=== PATIENT | female | born 1935 | race Caucasian/White ===

== ENCOUNTER 2018-06-30 13:52 | Observation (INO) | payer MEDICARE, OTHER, SELFPAY ==
[2018-06-30] VITALS (13 sets, daily range): BP systolic 117–205; BP diastolic 75–97; PULSE 63–79; RESP 12–19; TEMP 36.4–36.7; O2SAT 95–100; BMI 24.0
--- NOTE | 2018-06-30 14:17 | DI.RAD.S_ITS ---
PROCEDURE: XR CHEST 1V INDICATIONS: chest pain TECHNIQUE: One view of the chest was acquired. COMPARISON: None. FINDINGS: Surgical changes and devices: None. Lungs and pleura: No pleural effusions or pneumothorax. Lungs are clear. Mediastinum: Mediastinal contours appear normal. Heart size is normal. Bones and chest wall: No suspicious bony lesions. Overlying soft tissues appear unremarkable. IMPRESSION: No acute cardiopulmonary pathology. Dictated by: Eduardo Mcfadden M.D. on 06/30/2018 at 14:29 Approved by: Eduardo Mcfadden M.D. on 06/30/2018 at 14:30
[2018-06-30 14:22] LABS: Add Manual Diff / Slide Review NO; Basophils Percent Auto 0.6 % (0-2); Eosinophils Percent Auto 1.5 % (2-4); Hematocrit 44.3 % (36-46); Hemoglobin 15.5 g/dL (12.0-16.0); Lymphocytes Percent Auto 35.1 % (25-40); Mean Corpuscular HGB Conc 34.9 % (30-36); Mean Corpuscular Hemoglobin 31.7 PG (26-34); Mean Corpuscular Volume 90.9 fL (80-100); Monocytes Percent Auto 6.9 % (3-14); Neutrophils Absolute Auto 3300 /uL (3000-5900); Neutrophils Percent Auto 55.9 % (50-75); Platelet Count 167 X10^3/uL (150-400); Red Blood Cell Count 4.87 X10^6/uL (4.0-5.2); Red Cell Distribution Width 13.2 % (11.6-14.8); White Blood Cell Count 5.8 X10^3/uL (4.5-11.0)
[2018-06-30] MEDS: NITROGLYCERIN 0.4 MG SL TAB SL ×2 (14:23→14:46)
[2018-06-30] MEDS: ASPIRIN 81 MG TAB 324 MG PO (14:23)
[2018-06-30 14:29] LABS: Prothrombin Time 10.6 SECONDS (10.1-12.7)
[2018-06-30 14:31] LABS: Chloride 105 mmol/L (98-107); HEMOLYSIS < 15 (0-50)
[2018-06-30 14:32] LABS: PTT Partial Thromboplastin Tim 28 SECONDS (26.4-36.2)
[2018-06-30 14:34] LABS: Alanine Aminotransferase 32 IU/L (9-52); Albumin 4.2 g/dL (3.5-5.0); Albumin Globulin Ratio 1.2 (1.0-2.8); Alkaline Phosphatase 63 U/L (38-126); Aspartate Aminotransferase 33 IU/L (14-36); BUN Creatinine Ratio 22.9 (6-22); Bilirubin Total 0.6 mg/dL (0.2-1.3); Blood Urea Nitrogen 16 mg/dL (7-17); Carbon Dioxide 27 mmol/L (22-32); Creatine Kinase 75 U/L (30-135); Estimated Glomerular Filt Rate > 60.0 mL/min (>60); Globulin 3.4 g/dL (1.7-4.1); Glucose 94 mg/dL (80-110); Lipase 190 U/L (23-300); Potassium 3.9 mmol/L (3.4-5.1); Sodium 141 mmol/L (137-145); Total Protein 7.6 g/dL (6.3-8.2)
--- NOTE | 2018-06-30 14:36 | PC.NURSE ---
After 1st NTG, BP decreased significantly (120's systolic). Pain in chest is better, pain in left neck 6/10, slightly improved.
--- NOTE | 2018-06-30 14:55 | PC.NURSE ---
After 2nd ntg, chest pressure has returned and neck pain is unchanged.
[2018-06-30 15:01] LABS: Troponin I < 0.012 ng/mL (0.01-0.034)
--- NOTE | 2018-06-30 15:06 | DI.CT.S_ITS ---
PROCEDURE: CT ANGIO CHEST ABDOMEN INDICATIONS: Pain, clinical concern for dissection TECHNIQUE: Precontrast 5 mm thick sections acquired from the lung apices to the iliac crests. After the administration of intravenous contrast, 2.5 mm thick sections again acquired from the lung apices to the iliac crests. 10 mm maximum intensity projection (MIP) oblique sagittal and coronal reformats were then acquired. For radiation dose reduction, the following was used: automated exposure control. COMPARISON: [facility], CR, XR CHEST 1V, 06/30/2018, 14:21. FINDINGS: Image quality: Excellent. AORTA: No findings of dissection are aneurysm are seen. Atherosclerotic irregularity and calcification can be seen throughout. Focal ectasia is seen of the mid abdominal aorta, which measures up to 2.5 cm AP. There is 40-50% stenosis seen involving the celiac axis. The origin of the SMA is widely patent. The visualized GROVER is unremarkable. Accessory renal arteries are seen on both sides, with 2 accessory renal arteries seen on the right side. CHEST: Lungs and pleura: No acute airspace opacities. No pleural effusions or pneumothorax. Central and peripheral airways are patent and normal in caliber. Mediastinum: Heart size is normal. No pericardial effusion. No mediastinal or hilar adenopathy by size criteria. Central pulmonary arteries are normal in size. Esophagus is normal in caliber. No hiatal hernias. Bones and chest wall: Rim calcified mammoplasty implants are seen No axillary adenopathy by size criteria. Thyroid gland demonstrates no significant CT abnormality. No suspicious bony lesions. No vertebral body compression fractures. ABDOMEN: Vasculature: Celiac trunk and mesenteric arteries are patent. Renal arteries are also patent. Solid organs: Liver is normal in size and enhancement. Gallbladder wall is not thickened. Biliary system is non dilated. Pancreas enhances normally. Spleen is normal in size and enhancement. No adrenal nodules. Both kidneys are normal in size and enhancement, without hydronephrosis. Peritoneum and bowel: No free fluid or air. Bowel loops are normal in caliber and wall thickness. Nodes and vessels: No retroperitoneal or mesenteric adenopathy by size criteria. Inferior vena cava is normal in morphology. Bones: No suspicious bony lesions. A vertebral body hemangioma can be seen at T7. S-shaped scoliotic curvature is seen. No vertebral body compression fractures. Miscellaneous: No ventral hernias. IMPRESSION: Negative for aortic dissection or aneurysm. 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 Incidental note is made of: Rim calcified mammoplasty implants Atherosclerotic irregularity and calcification Abdominal aortic ectasia, without aneurysm T7 vertebral body hemangioma. Bilateral accessory renal arteries S-shaped scoliotic curvature Dictated by: Presley Ferro M.D. on 06/30/2018 at 14:36 Approved by: Presley Ferro M.D. on 06/30/2018 at 14:43
--- NOTE | 2018-06-30 16:27 | PC.NURSE ---
+ changes on 2nd EKG as compared to 1st. Will repeat in one hour.
[2018-06-30] MEDS: LORazepam 0.5 MG TABLET 1 MG PO (16:30)
[2018-06-30 17:13] LABS: Troponin I < 0.012 ng/mL (0.01-0.034)
--- NOTE | 2018-06-30 18:27 | ED_ITS ---
HPI - Chest Pain General Chief Complaint: Chest Pain Stated Complaint: CHEST PAIN History of Present Illness HPI narrative: HPI 83-year-old female with history of Takotsubo cardiomyopathy presents for evaluation of non-radiating, sharp left subscapular of ~4 hours duration as well as 2-3 hours of mild substernal cramping / squeezing type chest pain. Unable to identify any provoking or relieving factors. Patient denies recent immobilization, leg trauma, estrogen use, surgery in the last four weeks, hemoptysis, or malignancy in the last 6 months. M/S/F/SocHx notable for: please see HPI; remainder reviewed with patient and in chart. ROS: Negative constitutional, eye, cardiovascular, pulmonary, GI, , MSK, skin , neurologic, psychiatric, endocrine unless noted in the HPI. Exam Gen: Pleasant, non-toxic appearing, resting comfortably. HEENT: NC, AT, PEERL, EOMI. Resp: Clear to auscultation bilaterally, normal work of breathing. Card: RRR with no M/R/G, no crackles in lung bases, no pedal edema, no JVD appreciated. GI: nontender to palpation throughout all quadrants, no rebound, no guarding. MSK: No chest wall TTP. No visible deformities, strength and tone WNL. Skin: Normal color with no visible lesions. Neuro: AO x 3, no facial asymmetry, vision and hearing WNL. Psych: Mood and affect appropriate. Labs / Imaging (pertinent): WBC 5.8, Hb 15.5, Na 141, K 3.9, total bilirubin 0.6, AST 33, ALT 32, alkaline phosphatase 63, lipase 190. Troponin (2:10 PM) <0.012 , troponin (4:27 PM) <0.012 EKG (1:59 PM): SR at 74 bpm, CT 189 ms, no CT segment depressions, no new ST segment changes, new LBBB, upgrade T-wave in lead V1, no further abnormalities to suggest acute ischemia. No prior ECGs for comparison. EKG (4:14 PM) SR 63 bpm, CT 220 ms, no ST segment elevations or depressions, increase T-wave amplitude in lead V1, V2, 3. EKG (5:57): SR 65 bpm, no significant change from 4:14pm EKG. CXR: No acute cardiopulmonary disease process. CTA Chest / Abd: Negative for aortic dissection or aneurysm. 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 Incidental note is made of: Rim calcified mammoplasty implants, Atherosclerotic irregularity and calcification, Abdominal aortic ectasia, without aneurysm, T7 vertebral body hemangioma, Bilateral accessory renal arteries, S-shaped scoliotic curvature. MDM Previous chart, nursing note, and vitals reviewed. A: 83-year-old female with history of Takotsubo cardiomyopathy presents for evaluation of non-radiating, sharp left subscapular of ~4 hours duration as well as 2-3 hours of mild substernal cramping / squeezing type chest pain. DDx and Evaluation: * ACS - doubt ACS given a non-ischemic EKG and negative serial troponins. * UA - concern for unstable angina given the ongoing change in dynamic EKG changes, HEART score 5 (Hx - 1, EKG - 1, age - 2, risk factors - 1, troponin - 0 ; 30 day MACE: 12-16.6%). * Pericarditis - consider pericarditis unlikely given the lack of CT segment depressions as well as the absence of diffuse ST-segment elevations, lack of reduction of pain when supine, and lack of a friction rub. * Myocarditis - unlikely given the negative troponin and an EKG without characteristic CT-segment or ST-segment changes. * Dissection - no evidence by imaging. * PE - low clinical suspicion given history and alternate diagnosis, further risk stratification (e.g.) Well's not indicated. * Mediastinal Air - no evidence by CXR or auscultation. * Pneumothorax - no evidence by CXR or physical exam. * MSK - doubt given lack of reproducibility on exam. * Endocarditis - no identifiable risk factors, patient afebrile, no new murmurs appreciated on exam; doubt. * GI (Esophageal rupture, GERD) - esophageal rupture effectively excluded given the lack of mediastinal widening, non-toxic appearance, and lack of identifiable risk factors. While not definitively excluded, further evaluation of GERD is deferred to an outpatient setting. ED Course: Patient given ASA, minimal change with nitroglycerin, diludid given for pain. Vital signs remained stable and within clinically acceptable limits. Disposition: admitted further evaluation as appropriate. Impression: Chest Pain. Related Data Home Medications Medication Instructions Recorded Confirmed Calcium 1 tab PO DAILY 06/30/18 06/30/18 Vitamin B 1 tab PO DAILY 06/30/18 06/30/18 lisinopril 5 mg PO DAILY 06/30/18 06/30/18 multivitamin 1 tab PO DAILY 06/30/18 06/30/18 temazepam [Restoril] 30 mg PO BEDTIME 06/30/18 06/30/18 vit C-vit B-cjhqax-chh-om-3 1 cap PO DAILY 06/30/18 06/30/18 [Ocuvite] Allergies Allergy/AdvReac Type Severity Reaction Status Date / Time No Known Drug Allergies Allergy Verified 06/30/18 14:22 [facility] Social History Smoking Status: Former smoker Exam Initial Vital Signs Initial Vital Signs: Vital Signs Temperature 98.0 F 06/30/18 14:00 Pulse Rate 79 06/30/18 14:00 Respiratory Rate 19 06/30/18 14:00 Blood Pressure 205/97 H 06/30/18 14:00 Pulse Oximetry 99 06/30/18 14:00 Course Orders Ordered: ED Orders 06/30/18 14:09 EKG-12 Lead Stat 06/30/18 14:10 Complete Blood Count AUTO DIFF Stat Comprehensive Metabolic Panel Stat Lipase Stat Partial Thromboplastin Time Stat Prothrombin Time INR Stat Troponin & CK Cardiac Panel Stat 06/30/18 14:17 XR chest 1V Stat 06/30/18 15:06 CT angio chest abdomen Stat 06/30/18 16:13 EKG-12 Lead Stat 06/30/18 16:14 EKG-12 Lead Stat 06/30/18 16:27 Troponin I Stat 06/30/18 17:02 EKG-12 Lead Stat Nitroglycerin (Nitrostat) 0.4 mg SL [id number] PRN PRN Reason: Chest Pain Last Admin: 06/30/18 14:46 Dose: 0.4 mg Admin: 06/30/18 14:23 Dose: 0.4 mg Discontinued Medications Aspirin (Aspirin Chew) 324 mg PO NOW ONE Stop: 06/30/18 14:18 Last Admin: 06/30/18 14:23 Dose: 324 mg Lorazepam (Ativan) 1 mg PO NOW ONE Stop: 06/30/18 16:28 Last Admin: 06/30/18 16:30 Dose: 1 mg Vital Signs - 8 hr 06/30/18 14:00 06/30/18 14:23 06/30/18 14:35 Temperature 98.0 F Pulse Rate 79 65 65 Respiratory Rate 19 14 Blood Pressure 205/97 H 186/88 H Blood Pressure [Right Arm] 129/87 H Pulse Oximetry 99 100 06/30/18 14:36 06/30/18 14:46 06/30/18 14:54 Temperature Pulse Rate 65 Respiratory Rate Blood Pressure 129/87 H 143/87 H 139/92 H Blood Pressure [Right Arm] Pulse Oximetry 06/30/18 14:55 06/30/18 15:30 06/30/18 16:16 Temperature Pulse Rate 65 65 63 Respiratory Rate 14 12 12 Blood Pressure Blood Pressure [Right Arm] 139/92 H 135/85 H 145/78 H Pulse Oximetry 95 97 06/30/18 17:18 06/30/18 18:02 Temperature Pulse Rate 64 66 Respiratory Rate 15 14 Blood Pressure Blood Pressure [Right Arm] 117/82 H 139/79 H Pulse Oximetry 95 98 MDM - Chest Pain Lab Data Result diagrams: 06/30/18 14:10 06/30/18 14:10 Lab Results 06/30/18 06/30/18 06/30/18 Range/Units 14:10 14:10 14:10 WBC 5.8 (4.5-11.0) X10^3/uL RBC 4.87 (4.0-5.2) X10^6/uL Hgb 15.5 (12.0-16.0) g/dL Hct 44.3 (36-46) % MCV 90.9 (80-100) fL MCH 31.7 (26-34) PG MCHC 34.9 (30-36) % RDW 13.2 (11.6-14.8) % Plt Count 167 (150-400) X10^3/uL Neut % (Auto) 55.9 (50-75) % Lymph % (Auto) 35.1 (25-40) % [place] % (Auto) 6.9 (3-14) % Eos % (Auto) 1.5 L (2-4) % Baso % (Auto) 0.6 (0-2) % Neut # (Auto) 3300 (9292-1677) /uL PT 10.6 (10.1-12.7) SECONDS INR 1.0 (0.9-1.3) APTT 28 (26.4-36.2) SECONDS Sodium 141 (137-145) mmol/L Potassium 3.9 (3.4-5.1) mmol/L Chloride 105 (98-107) mmol/L Carbon Dioxide 27 (22-32) mmol/L BUN 16 (7-17) mg/dL Creatinine 0.70 (0.52-1.04) mg/dL Estimated GFR > 60.0 (>60) mL/min BUN/Creatinine Ratio 22.9 H (6-22) Glucose 94 (80-110) mg/dL Calcium 10.0 (8.4-10.2) mg/dL Total Bilirubin 0.6 (0.2-1.3) mg/dL AST 33 (14-36) IU/L ALT 32 (9-52) IU/L Alkaline Phosphatase 63 (38-126) U/L Total Creatine Kinase 75 (30-135) U/L CK-MB (CK-2) TNP Troponin I < 0.012 (0.01-0.034) ng/mL Total Protein 7.6 (6.3-8.2) g/dL Albumin 4.2 (3.5-5.0) g/dL Globulin 3.4 (1.7-4.1) g/dL Albumin/Globulin Ratio 1.2 (1.0-2.8) Lipase 190 (23-300) U/L 06/30/18 Range/Units 16:27 WBC (4.5-11.0) X10^3/uL RBC (4.0-5.2) X10^6/uL Hgb (12.0-16.0) g/dL Hct (36-46) % MCV (80-100) fL MCH (26-34) PG MCHC (30-36) % RDW (11.6-14.8) % Plt Count (150-400) X10^3/uL Neut % (Auto) (50-75) % Lymph % (Auto) (25-40) % [place] % (Auto) (3-14) % Eos % (Auto) (2-4) % Baso % (Auto) (0-2) % Neut # (Auto) (9904-3349) /uL PT (10.1-12.7) SECONDS INR (0.9-1.3) APTT (26.4-36.2) SECONDS Sodium (137-145) mmol/L Potassium (3.4-5.1) mmol/L Chloride (98-107) mmol/L Carbon Dioxide (22-32) mmol/L BUN (7-17) mg/dL Creatinine (0.52-1.04) mg/dL Estimated GFR (>60) mL/min BUN/Creatinine Ratio (6-22) Glucose (80-110) mg/dL Calcium (8.4-10.2) mg/dL Total Bilirubin (0.2-1.3) mg/dL AST (14-36) IU/L ALT (9-52) IU/L Alkaline Phosphatase (38-126) U/L Total Creatine Kinase (30-135) U/L CK-MB (CK-2) Troponin I < 0.012 (0.01-0.034) ng/mL Total Protein (6.3-8.2) g/dL Albumin (3.5-5.0) g/dL Globulin (1.7-4.1) g/dL Albumin/Globulin Ratio (1.0-2.8) Lipase (23-300) U/L Discharge Plan Departure Prescriptions: No Action multivitamin Tablet 1 tab PO DAILY RF: 0 temazepam [Restoril] 30 mg Capsule 30 mg PO BEDTIME RF: 0 lisinopril 5 mg Tablet 5 mg PO DAILY RF: 0 vit C-vit L-pfjezu-lvo-om-3 [Ocuvite] [id number] kq-ydod-xq-mg Capsule 1 cap PO DAILY RF: 0 Calcium 1 tab PO DAILY RF: 0 Vitamin B 1 tab PO DAILY RF: 0
--- NOTE | 2018-06-30 19:18 | PM.HP.1 ---
History of Present Illness Date Patient Seen: 06/30/18 Time Patient Seen: 17:50 Chief complaint: CHEST PAIN Narrative: Patient is an 83 years of age female that notes onset of chest discomfort at rest. This came on earlier today. He noted as a chest heaviness. Earlier today in the morning she felt dysphoric. Two days ago she notes she has had a bad episode of vertigo. 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 Patient is visiting locally a boyfriend. She last visited him from [place] to this region in March of 2018. Patient is concerned that she may have had somewhat of an anxiety episode. She denies any history of heartburn or reflux disease. No known history of coronary artery disease nor congestive heart failure. Patient notes that she swims in a pool perhaps 4-5 days a week. She has no notable change in her activity over the past several weeks. Her exercise tolerance remains unchanged according to the patient. She stopped smoking in 1979. She has she has no early heart disease in 1st degree relatives. Patient History Medical History Anxiety (Acute) Hypertension (Acute) Takotsubo cardiomyopathy (Acute) Vertigo (Acute) Family & Social History Safety & Behavioral: Feels Safe in Current Yes Environment Tobacco & Substance use: Smoking Status Former smoker alcohol intake frequency holiday/special occasion Substance Use Type does not use Meds Home Medications Medication Instructions Recorded Confirmed Type Calcium 1 tab PO DAILY 06/30/18 06/30/18 History Vitamin B 1 tab PO DAILY 06/30/18 06/30/18 History lisinopril 5 mg PO DAILY 06/30/18 06/30/18 History multivitamin 1 tab PO DAILY 06/30/18 06/30/18 History temazepam [Restoril] 30 mg PO BEDTIME 06/30/18 06/30/18 History vit C-vit V-qyxkxf-btx-om-3 1 cap PO DAILY 06/30/18 06/30/18 History [Ocuvite] Allergies Allergy/AdvReac Type Severity Reaction Status Date / Time No Known Drug Allergies Allergy Verified 06/30/18 14:22 Review of Systems Review of Systems A 10 point review of system was negative except for the symptoms as described. The chest pain more so a chest heaviness. Feeling a bit of dysphoria this morning. Feeling a bit anxious. No history of gastroesophageal reflux disease. Exam Vital Signs (past 8 hours): - 06/30/18 14:00 06/30/18 14:23 06/30/18 14:35 Temperature 98.0 F Pulse Rate 79 65 65 Respiratory Rate 19 14 Blood Pressure 205/97 H 186/88 H Blood Pressure [Right Arm] 129/87 H Pulse Oximetry 99 100 06/30/18 14:36 06/30/18 14:46 06/30/18 14:54 Temperature Pulse Rate 65 Respiratory Rate Blood Pressure 129/87 H 143/87 H 139/92 H Blood Pressure [Right Arm] Pulse Oximetry 06/30/18 14:55 06/30/18 15:30 06/30/18 16:16 Temperature Pulse Rate 65 65 63 Respiratory Rate 14 12 12 Blood Pressure Blood Pressure [Right Arm] 139/92 H 135/85 H 145/78 H Pulse Oximetry 95 97 06/30/18 17:18 06/30/18 18:02 06/30/18 18:35 Temperature Pulse Rate 64 66 64 Respiratory Rate 15 14 12 Blood Pressure 152/78 H Blood Pressure [Right Arm] 117/82 H 139/79 H Pulse Oximetry 95 98 100 Oxygen Delivery Method Room Air Narrative Exam Narrative: Physical exam general appearance patient is a 83 years of age female who is young for her age in appearance. Psychiatric Well oriented mood is pleasant cooperative patient in good spirits Skin Normal turgor for age note nonjaundiced no suspicious dermatitis rash lesions noted Eyes Pupils are equal round and reactive to light Ears nose throat hearing is grossly intact, dentition is fair and appropriate for age, nose septum to midline with no bleeding noted Respiratory Clear to auscultation with good airflow no wheezes no crackles Cardiovascular Regular in rate and rhythm no murmur rubs or gallops Gastrointestinal Soft nontender positive bowel sounds no pedal splenomegaly no bruits are noted Lymph nodes no lymphadenopathy to neck or axilla Musculoskeletal Motor strength 5/5 no clubbing is noted range of motion is normal neurologic No focal neurologic changes cranial nerves 2-12 were grossly intact normal proprioception noted Musculoskeletal Objective Labs Result Diagrams: 06/30/18 14:10 06/30/18 14:10 Labs: Laboratory Results - last 24 hr 06/30/18 06/30/18 06/30/18 14:10 14:10 14:10 WBC 5.8 RBC 4.87 Hgb 15.5 Hct 44.3 MCV 90.9 MCH 31.7 MCHC 34.9 RDW 13.2 Plt Count 167 Neut % (Auto) 55.9 Lymph % (Auto) 35.1 [place] % (Auto) 6.9 Eos % (Auto) 1.5 L Baso % (Auto) 0.6 Neut # (Auto) 3300 PT 10.6 INR 1.0 APTT 28 Sodium 141 Potassium 3.9 Chloride 105 Carbon Dioxide 27 BUN 16 Creatinine 0.70 Estimated GFR > 60.0 BUN/Creatinine Ratio 22.9 H Glucose 94 Calcium 10.0 Total Bilirubin 0.6 AST 33 ALT 32 Alkaline Phosphatase 63 Total Creatine Kinase 75 CK-MB (CK-2) TNP Troponin I < 0.012 Total Protein 7.6 Albumin 4.2 Globulin 3.4 Albumin/Globulin Ratio 1.2 Lipase 190 06/30/18 16:27 WBC RBC Hgb Hct MCV MCH MCHC RDW Plt Count Neut % (Auto) Lymph % (Auto) [place] % (Auto) Eos % (Auto) Baso % (Auto) Neut # (Auto) PT INR APTT Sodium Potassium Chloride Carbon Dioxide BUN Creatinine Estimated GFR BUN/Creatinine Ratio Glucose Calcium Total Bilirubin AST ALT Alkaline Phosphatase Total Creatine Kinase CK-MB (CK-2) Troponin I < 0.012 Total Protein Albumin Globulin Albumin/Globulin Ratio Lipase Assessment & Plan Plan: Assessment/Plan Narrative: 1. Atypical chest pain Patient admitted to observation with telemetry provided. Cardiac enzymes to be done serially. Aspirin daily. Nitroglycerin as needed. Will consider treadmill test [place] that requires a very ride to get back to the hospital. Patient does not return to [place] until next week. 2. Mild anxiety Will provide Ativan 0.5 mg p.o. q.3 hours as needed. Restoril to be provided this evening as sleep aid 3. History of hypertension We will provide her home cardiac med as tolerated. Time Spent With Patient Time with patient: Greater than 35 minutes (50 minutes)
--- NOTE | 2018-06-30 20:40 | PC.NURSE ---
admission pt to ac from ER after experiencing left shoulder and neck pain/pressure that radiated to chest [place]. pt states improvement post treatment in ER. Tele monitor on. Cardiac enzymes - so far. in to see/assess pt upon arrival. Pt oriented to room and plan of care. call light encouraged for needs and prior to activity if wanting any assist.
[2018-06-30] MEDS: SODIUM CHLORIDE 0.9% 1,000 ML 65 ML IV (20:47)
[2018-06-30 21:43] LABS: Creatine Kinase 63 U/L (30-135)
[2018-06-30] MEDS: TEMAZEPAM 15 MG CAPSULE PO ×2 (21:49→22:56)
[2018-06-30 21:56] LABS: Troponin I < 0.012 ng/mL (0.01-0.034)
[2018-07-01 00:44] VITALS: BP 141/70; PULSE 62; RESP 18; TEMP 36.2; O2SAT 98
[2018-07-01 00:46] VITALS: BP 120/61; PULSE 66; RESP 16; TEMP 36.4; O2SAT 96
[2018-07-01 05:08] VITALS: BP 120/76; PULSE 60; RESP 18; TEMP 36.6; O2SAT 94
[2018-07-01 05:33] LABS: Creatine Kinase 51 U/L (30-135)
[2018-07-01 05:47] LABS: Troponin I < 0.012 ng/mL (0.01-0.034)
[2018-07-01 07:50] VITALS: BP 141/95; PULSE 69; RESP 16; TEMP 36.3; O2SAT 99
--- NOTE | 2018-07-01 09:13 | DI.NM.S_ITS ---
PROCEDURE: NM ZAHEER PERF SPECT REST & STR Rest and exercise myocardial perfusion SPECT with gated imaging and ejection fraction RADIOPHARMACEUTICAL: 13.9 mCi Tc-99m sestamibi IV at rest and 21.2 mCi Tc-99m sestamibi IV at peak exercise. A two day-protocol was performed. INDICATIONS: chest pain TECHNIQUE: Radiopharmaceutical was injected at peak stress test, and also at rest. SPECT images were obtained. SPECT myocardial perfusion images were displayed in short axis, horizontal long axis, and vertical long axis views. Gated images were reviewed using [employer] software. COMPARISON: None. CARDIAC STRESS: A standard [place] treadmill exercise tolerance test was performed by the patient under the supervision of an attending staff. The patient exercised for 5 minutes and 5 seconds eraching 7.0 METs; functional aerobic impairment (BETO) is -20%. Hemodynamic data: There is normal heart rate response to exercise stress. Patient achieved 85% of maximum predicted heart rate at peak exercise. Borderline hypertensive response to exercise 9rest BP 140/80, max BP 190/100). Symptoms: Patient denied chest pain during exercise. EKG: Sinus rhythm with no ST-T changes at rest. No diagnostic EKG changes of ischemia with exercise stress test; occasional PVCs noted. FINDINGS: Raw data: There is good myocardial labeling by radiotracer. No significant motion artifacts. Left ventricle function: Gated images demonstrate normal left ventricle wall thickening. No segmental wall motion abnormality. No transient ischemic dilation; TID is 1.19 (normal less than 1.3). The left ventricle resting end-diastolic volume is 94 mL. Left ventricle stress ejection fraction is 71%; normal values are above 45%. Myocardial perfusion: There is normal distribution of activity in the left and right ventricular myocardium. No fixed or reversible perfusion defects. IMPRESSION: Low risk, normal treadmill myocardial nuclear stress test 1) Normal perfusion images, with no evidence of ischemia or infarction. 2) Normal left ventricular size, wall motion, and systolic function (EF 71% post stress). 3) No ECG evidence of ischemia. 4) No angina during the stress test. 5) Good exercise capacity (7.0 METs, BETO -20%). Target heart rate achieved. Borderline hypertensive response to exercise 9rest BP 140/80, max BP 190/100). 6) No prior nuclear stress test available for comparison. Dictated by: Felice Carranza MD on 07/01/2018 at 15:10 Approved by: Felice Carranza MD on 07/01/2018 at 15:15
[2018-07-01] MEDS: ASPIRIN 81 MG TAB 324 MG PO (09:15)
--- NOTE | 2018-07-01 13:15 | CM.DANOTE ---
DCP: Case received, EMR reviewed and met with patient. Introduced self and role. DCP template completed with information currently available. Patient is an 83 year old female who was admitted yesterday pm to the care of the hospitalist team. PCP: Dr. Rae. Payer: confirmed: Medicare/[employer] Patient came in with symptoms of chest pain. Is here under observation status, cardiac work up being done. Patient alert and oriented, is from [place], and is up here visiting her boy friend. Signicant was in the room with patient as well. P: DCP to continue to assess. Patient is planning on going home with significant, eventually back to [place]. Primary doctor is in [place]. Selam Stanford RN/[employer]
--- NOTE | 2018-07-01 13:54 | PM.TREADMILL ---
Cardiac Stress Test Report Referral & Results Date Patient Seen: 07/01/18 Time Patient Seen: 13:54 Requesting provider: Beltran Wilson Indication: Chest pain Rest ECG: Unremarkable Procedure Note: Today following both written and verbal informed consent the patient was exercised according to a standard Byron protocol patient went for a total of 6 min to seconds achieving a maximum heart rate of 117 maximum systolic blood pressure of 190. This is approximately 7.0 METS. Exercise was terminated at this point because of inability the patient to continue on targets having been med. Patient was also given Cardiolite through a previously started Hep-Lock IV by the nuclear medicine technologist approximately 1 minute prior to the cessation of exercise. There are no ST segment changes noted. Functional aerobic impairment was off scale because of her age estimate at-20% on the active scale or better than average Occasional PVCs including couplets and multiple foci were noted rare PACs were identified as well The patient was slightly hypertensive overall. Heart rate response was normal Impression: No evidence of ischemia. Excellent exercise capacity. Perfusion imaging to be reported separately. Please note: Actual ECG tracings can be found in the PACS system.
--- NOTE | 2018-07-01 13:57 | P.PCN_ITS ---
Cardiac Stress Test Report Referral & Results Date Patient Seen: 07/01/18 Time Patient Seen: 13:54 Requesting provider: Beltran Wilson Indication: Chest pain Rest ECG: Unremarkable Procedure Note: Today following both written and verbal informed consent the patient was exercised according to a standard Byron protocol patient went for a total of 6 min to seconds achieving a maximum heart rate of 117 maximum systolic blood pressure of 190. This is approximately 7.0 METS. Exercise was terminated at this point because of inability the patient to continue on targets having been med. Patient was also given Cardiolite through a previously started Hep-Lock IV by the nuclear powerplant mechanic helper approximately 1 minute prior to the cessation of exercise. There are no ST segment changes noted. Functional aerobic impairment was off scale because of her age estimate at-20% on the active scale or better than average Occasional PVCs including couplets and multiple foci were noted rare PACs were identified as well The patient was slightly hypertensive overall. Heart rate response was normal Impression: No evidence of ischemia. Excellent exercise capacity. Perfusion imaging to be reported separately. Please note: Actual ECG tracings can be found in the PACS system.
--- NOTE | 2018-07-01 15:29 | P.DS_ITS ---
History of Present Illness Date Patient Seen: 07/01/18 Time Patient Seen: 15:27 Chief complaint: CHEST PAIN Narrative: Patient is an 83 years of age female that notes onset of chest discomfort at rest. This came on earlier today. He noted as a chest heaviness. Earlier today in the morning she felt dysphoric. Two days ago she notes she has had a bad episode of vertigo. 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 Patient is visiting locally a boyfriend. She last visited him from [place] to this region in March of 2018. Patient is concerned that she may have had somewhat of an anxiety episode. She denies any history of heartburn or reflux disease. No known history of coronary artery disease nor congestive heart failure. Patient notes that she swims in a pool perhaps 4-5 days a week. She has no notable change in her activity over the past several weeks. Her exercise tolerance remains unchanged according to the patient. She stopped smoking in 1979. She has she has no early heart disease in 1st degree relatives. Discharge Providers Date of admission: 06/30/18 18:39 Discharge provider: Beltran Wilson MD Summary Discharge Diagnosis: 1. Atypical chest pain resolved during hospital course 2. Hypertension stable on discharge 3. History of takotsubo cardiomyopathy 10 years ago Status at Discharge Cognitive/behavioral status at discharge: Well oriented mood is pleasant affect appropriate Functional status at discharge: independent ambulation Overall status at discharge: patient is back to baseline Time Spent with Patient Greater than 30 minutes Exam Vital Signs (past 8 hours): - 07/01/18 07:50 Temperature 97.4 F L Pulse Rate 69 Respiratory Rate 16 Blood Pressure 141/95 H Pulse Oximetry 99 Oxygen Delivery Method Room Air Oxygen Flow Rate 0 Narrative Exam Narrative: Patient is noted awake and alert no apparent distress well oriented anxious for discharge Respiratory Lungs clear to auscultation no wheezes no crackles Cardiovascular Regular in rate and rhythm no murmur rubs or gallops GI Abdomen is soft nontender positive bowel sounds Objective Labs Result Diagrams: 06/30/18 14:10 06/30/18 14:10 Labs: Laboratory Results - last 24 hr 06/30/18 06/30/18 07/01/18 16:27 21:25 04:55 Total Creatine Kinase 63 51 CK-MB (CK-2) TNP Troponin I < 0.012 < 0.012 < 0.012 Discharge Plan Discharge Plan Patient Disposition: Home, Self-Care Provider Discharge Instructions Diet: Diet as Tolerated Wound Care Report to your healthcare provider any signs of infection, such as:: chills, fever, night sweats and increased pain Discharge Data Attending Provider: Beltran Wilson Admit Date/Time: 06/30/18 18:39 Quality VTE Deep Vein Thrombosis/Pulmonary Embolism Present on Admission: No
== END 2018-07-01 15:55 | disposition home or self-care (01) ==
LOC: ED 18:38 → AC 07-01 07:15
PROVIDERS: Admitting Provider Internal Medicine; Emergency Provider Emergency Medicine; Visit Provider Internal Medicine
DX: R07.9 Chest pain, unspecified (principal); R42 Dizziness and giddiness; F41.9 Anxiety disorder, unspecified; I10 Essential (primary) hypertension; Z87.891 Personal history of nicotine dependence; Z86.79 Personal history of other diseases of the circulatory system
CPT/HCPCS: 36415; 36591; 71045; 71275; 74175; 78452; 80053; 82550; 82553; 83690; 84484; 85025; 85610; 85730; 93005; 93010; 93016; 93017; 93018; 99283; 99285; G0378; A9502; Q9967